=== PATIENT | female | born 1930 | race Caucasian/White ===

== ENCOUNTER → 2016-05-07 | Outpatient (CLI) | payer MEDICARE ==
[~2016-05-07] MED LIST: ASPIR LOW81 MG PO; SIMVASTATIN40 M1 PO; ZESTORETIC 20-1 EACH PO
== END ==
LOC: LAB 10:24
DX: E78.00 Pure hypercholesterolemia, unspecified (principal)

== ENCOUNTER → 2016-08-07 | Outpatient (CLI) | payer MEDICARE ==
[~2016-08-07] VITALS: Ht 157.5 cm; Wt 79.1 kg
[2016-08-07 12:08] VITALS: BP 176/84
== END ==
LOC: AMSURD 11:35
DX: I10 Essential (primary) hypertension (principal); I25.10 Atherosclerotic heart disease of native coronary artery without angina pectoris

== ENCOUNTER → 2016-08-14 | Outpatient (CLI) | payer MEDICARE ==
[2016-08-07 12:08] VITALS: BP 176/84
== END ==
LOC: MAMMO 09:49 → RAD 09:49 → MAMMO 12:59
DX: M81.0 Age-related osteoporosis without current pathological fracture (principal); M85.89 Other specified disorders of bone density and structure, multiple sites

== ENCOUNTER → 2016-09-05 | Outpatient (CLI) | payer MEDICARE ==
[2016-08-07 12:08] VITALS: BP 176/84
== END ==
LOC: CARDREHAB 08:33
DX: I25.10 Atherosclerotic heart disease of native coronary artery without angina pectoris (principal); E78.00 Pure hypercholesterolemia, unspecified; I25.2 Old myocardial infarction; I11.9 Hypertensive heart disease without heart failure; R06.00 Dyspnea, unspecified
CPT/HCPCS: A9500

== ENCOUNTER 2016-12-16 11:12 | Emergency (ER) | payer MEDICARE ==
[~2016-12-16] VITALS: Ht 157.5 cm; Wt 79.5 kg
[2016-12-16] MEDS ORDERED: GOOD NEIGHBOR200 M1 PO (11:30)
[2016-12-16 13:33] VITALS: BP 199/85
== END 2016-12-16 13:30 | disposition home or self-care (01) ==
LOC: ED 11:12
DX: S09.90XA Unspecified injury of head, initial encounter (principal); S01.112A Laceration without foreign body of left eyelid and periocular area, initial encounter; S00.83XA Contusion of other part of head, initial encounter; S00.12XA Contusion of left eyelid and periocular area, initial encounter; W10.8XXA Fall (on) (from) other stairs and steps, initial encounter; Z23 Encounter for immunization; S00.212A Abrasion of left eyelid and periocular area, initial encounter
CPT/HCPCS: 90715; A4550

== ENCOUNTER 2016-12-23 13:48 | Emergency (ER) | payer MEDICARE ==
[~2016-12-23 13:48] MED LIST changes: +GOOD NEIGHBOR200 M1 PO
[2016-12-23 13:55] VITALS: BP 190/76
== END 2016-12-23 13:57 | disposition home or self-care (01) ==
LOC: ED 13:48
DX: Z48.02 Encounter for removal of sutures (principal)
CPT/HCPCS: A4649

== ENCOUNTER → 2017-09-14 | Outpatient (CLI) | payer MEDICARE ==
[2017-09-14 09:39] LABS: ALBUMIN 3.7 g/dL (3.5-5.0); BUN/CREATININE RATIO 18.8 (6.0-26.0); CALCIUM 8.8 mg/dL (8.4-10.2); POTASSIUM 4.3 mmol/L (3.6-5.0); TOTAL BILIRUBIN 0.6 mg/dL (0.2-1.3); TOTAL PROTEIN 7.1 g/dL (6.3-8.2)
== END ==
LOC: LAB 08:55
PROVIDERS: Family Medicine
DX: E78.00 Pure hypercholesterolemia, unspecified (principal)

== ENCOUNTER → 2017-09-17 | Outpatient (CLI) | payer MEDICARE | LOC: LAB 10:12 | DX: R73.01 Impaired fasting glucose (principal) ==

== ENCOUNTER → 2018-03-18 | Outpatient (CLI) | payer MEDICARE ==
[~2018-03-18] VITALS: Ht 157.5 cm; Wt 75.5 kg
[~2018-03-18] MED LIST changes: +ALENDRONATE SOD70 MG PO; -GOOD NEIGHBOR200 M1 PO; +IBU400 MG PO; +TYLENOL EXTRA500 M2 PO
[2018-03-18 10:30] VITALS: BP 150/80
== END ==
LOC: AMSURD 10:19
DX: R00.1 Bradycardia, unspecified (principal); R42 Dizziness and giddiness; I10 Essential (primary) hypertension; R60.9 Edema, unspecified; H61.21 Impacted cerumen, right ear; H69.80 Other specified disorders of Eustachian tube, unspecified ear

== ENCOUNTER → 2018-09-01 | Outpatient (CLI) | payer MEDICARE ==
[2018-03-18 10:30] VITALS: BP 150/80
== END ==
LOC: RAD 13:36 → MAMMO 13:45 → RAD 13:45
DX: M81.0 Age-related osteoporosis without current pathological fracture (principal)

== ENCOUNTER 2018-10-21 11:30 | Outpatient (RCR) | payer MEDICARE ==
[2018-03-18 10:30] VITALS: BP 150/80
== END 2018-10-21 12:00 | disposition still patient (30) ==
LOC: PT 11:30
DX: R29.898 Other symptoms and signs involving the musculoskeletal system (principal)

== ENCOUNTER → 2018-11-02 | Outpatient (CLI) | payer MEDICARE ==
[2018-03-18 10:30] VITALS: BP 150/80
[2018-11-02 08:53] LABS: ALBUMIN 3.9 g/dL (3.4-4.8)
[2018-11-02 08:54] LABS: CALCIUM 9.3 mg/dL (8.3-10.5)
[2018-11-02 08:55] LABS: TOTAL PROTEIN 7.1 g/dL (6.2-8.1)
[2018-11-02 08:57] LABS: TOTAL BILIRUBIN 0.9 mg/dL (0.2-1.2)
== END ==
LOC: LAB 07:56
PROVIDERS: Family Medicine
DX: I10 Essential (primary) hypertension (principal); R73.01 Impaired fasting glucose; E78.00 Pure hypercholesterolemia, unspecified; R60.9 Edema, unspecified